=== PATIENT | female | born 1950 | race Caucasian/White ===

== ENCOUNTER 2018-09-24 16:09 | Emergency (ER) | payer MEDICARE, OTHER ==
[2018-09-24] MEDS: ACETAMINOPHEN 500 MG TAB PO (16:42)
[2018-09-24] MEDS: DIPHTH/TET/ACEL PERTUSS (ADULT) 0.5 ML VIAL IM* (16:52)
== END 2018-09-24 17:31 | disposition home or self-care (01) ==
LOC: FTE 16:09
DX: S61.201A Unspecified open wound of left index finger without damage to nail, initial encounter (principal); W26.8XXA Contact with other sharp object(s), not elsewhere classified, initial encounter; Y92.9 Unspecified place or not applicable; Z23 Encounter for immunization
CPT/HCPCS: 90471; 90715; 99283-25